=== PATIENT | male | born 1975 | race Caucasian/White ===

== ENCOUNTER → 2023-12-18 17:15 | Outpatient (REF) | payer BC, SELFPAY | LOC: HWRAD 17:15 | PROVIDERS: ATTENDING PHYSICIAN Chiropractor | DX: M53.2X7 Spinal instabilities, lumbosacral region (principal); R10.2 Pelvic and perineal pain | CPT/HCPCS: 72110; 72170 ==

== ENCOUNTER 2024-06-15 19:24 | Emergency (ER) | payer SELFPAY ==
[2024-06-15 19:26] VITALS: BP 121/79
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
[2024-06-15 23:30] VITALS: BP 129/76
== END 2024-06-15 23:31 | disposition home or self-care (01) ==
LOC: EMR 19:24
PROVIDERS: EMERGENCY PHYSICIAN Emergency Medicine
DX: S00.81XA Abrasion of other part of head, initial encounter (principal); R22.0 Localized swelling, mass and lump, head; R42 Dizziness and giddiness; V53.5XXA Driver of pick-up truck or van injured in collision with car, pick-up truck or van in traffic accident, initial encounter; Y92.410 Unspecified street and highway as the place of occurrence of the external cause; Y99.0 Civilian activity done for income or pay; I10 Essential (primary) hypertension; R73.03 Prediabetes; F17.200 Nicotine dependence, unspecified, uncomplicated; I25.2 Old myocardial infarction; Z79.02 Long term (current) use of antithrombotics/antiplatelets; Z95.5 Presence of coronary angioplasty implant and graft
CPT/HCPCS: 99284; 70450; 72125

== ENCOUNTER 2025-04-15 21:17 | Emergency (ER) | payer BC, SELFPAY ==
[2025-04-15 21:17] VITALS: BMI 36.4
[2025-04-15 21:24] VITALS: BP 145/79
[2025-04-15 22:23] VITALS: BP 146/82
--- NOTE | 2025-04-15 22:30 | ED.GENMED ---
History of Present Illness
General
Chief Complaint: Fall
Source: patient and spouse
Exam Limitations: none
Time Seen by Provider: 04/15/25 22:01
Nursing documentation reviewed up to this point in time: agreed with
History of Present Illness
History of Present Illness:
49-year-old male with past medical history of hypertension, diabetes, CAD status post stent on Brilinta who presents to the emergency department for evaluation after a fall. Patient was up on a ladder he says about 6 feet high. He says that the
ladder slipped out and he fell down landing on his feet and then fell backwards. He says he did not hit his head or lose consciousness. He says he injured his legs�most notably complains of pain in his right ankle. He also has some soreness in
the lower legs bilaterally. He sustained an abrasion to the anterior left mason. He says that initially he tried to walk off the fall but he was having trouble bearing weight on his right ankle and was having increasing pain which prompted ER trip.
He denies any headache or neck pain. He denies any back pain. He denies any chest or abdominal pain. He denies any pain in his upper extremities.
Past History
Past History
ED Past Medical History: HTN and Other (Pre-Diabetic)
ED Past Surgical History: Cardiac (Stent) and Orthopedic
Social History
Tobacco: Smoker
Alcohol: Occasional
Personal:
Living: with family
Employment: Employed
Review of Systems
Review of Systems
All Other Systems: ROS reviewed and negative except as documented in HPI and ROS
Respiratory: Denies trouble breathing
Cardiac: Denies chest pain
ABD/GI: Denies abdominal pain or nausea
: Denies flank pain
Musculoskeletal: Reports joint pain (Right ankle pain); Denies neck pain or back pain
Neurological: Denies headache
Phy Exam
Physical Exam
Physical Exam:
General: Awake, alert, oriented x3; no acute distress
Head: Normocephalic, atraumatic
Eyes: Conjunctiva normal, pupils equal round and reactive to light bilaterally
Throat: Airway intact, handling secretions
Neck: Trachea midline, no tenderness in the cervical spine, full range of motion without pain
Back: No signs of trauma to the back or flank, no tenderness of the thoracic or lumbar spine and no spinal step-offs, no tenderness in the posterior ribs
Lungs: Clear to auscultation bilaterally, no wheezing, rales, rhonchi
Heart: Regular rate; no chest wall tenderness
Abd: Soft, non distended, nontender
Neuro: Cranial nerves grossly intact, speech fluid, motor and sensory intact in the extremities although patient has pain on distal strength testing of the right foot
Skin: Patient has linear abrasion to the left mason
Extremities: Patient has linear abrasion to left mason and mild tenderness around this area but no tenderness in the left hip, knee, ankle and full range of motion in these joints without pain; on exam of the right lower extremity has no tenderness
in the hip or knee but he does have severe tenderness of the ankle over the lateral and medial malleolus (maximally tender over the lateral malleolus); he has some tenderness of the midfoot as well on the right; palpable pulses in the lower
extremities bilaterally; upper extremities atraumatic and moving them freely without pain
Scores
Heart Failure Risk
Heart Failure Risk Score: Not Applicable
Heart Score for Chest Pain Patients
STEMI patient?: Not applicable
Withdrawal Assessment of Alcohol
Withdrawal Assessment Completed?: Not applicable
Course
Orders/Labs/Results
Orders:
Orders
04/15/25 21:33
CT Head W/o Iv Contrast Urgent
Comment:
Reason For Exam: injury, blood thinners
CR Ankle - Right Min 3 Views * Urgent
Comment:
Reason For Exam: injury
CR Leg Tibia/fibula Left 2 Vw Urgent
Comment:
Reason For Exam: injury
CR Leg Tibia/fibula Right 2 Vw Urgent
Comment:
Reason For Exam: injury
04/15/25 22:30
Ortho Boot Right- Treatment ONCE
Short or tall?: Short
Oxycodone/Acetaminophen [Percocet 5/325] 1 tablet PO NOW STA
04/15/25 22:34
CR Foot - Right Min 3 Views Urgent
Comment:
Reason For Exam: right foot pain
Vital Signs
Initial and Last Documented VS:
Initial Vital Signs
Temp Pulse Resp BP Pulse Ox
37.1 C 80 18 145/79 98
04/15/25 21:24 04/15/25 21:24 04/15/25 21:24 04/15/25 21:24 04/15/25 21:24
Last Documented Vital Signs
Temp Pulse Resp BP Pulse Ox
37.1 C 80 23 146/82 98
04/15/25 21:24 04/15/25 22:30 04/15/25 22:30 04/15/25 22:23 04/15/25 22:34
MDM/Problems Addressed
Differential Diagnosis Includes:
Right ankle pain: Ankle/foot fracture, sprain, contusion
MDM/Problems Addressed:
49-year-old male presents after a fall off of a ladder last as above. Mainly complaining of pain in the right ankle. He was sent for imaging out of triage including a CT head�did not any head strike and no signs of head trauma but he is on
Brilinta. Fortunately CT head was negative for any acute abnormalities. He was sent for x-rays of the lower legs bilaterally which showed no fracture. He was sent for an x-ray of the right ankle which showed no fracture. Will add x-ray of the
foot as he does have some tenderness in the midfoot as well. Will treat pain. Will place an Ortho boot. Reassess after the above.
X-ray of the foot reviewed by me shows no acute fracture. Ortho boot applied by me. He is still having severe pain with any attempt at weightbearing on the right ankle. Provided crutches and advised to stay nonweightbearing. Discussed with
orthopedist to facilitate close follow-up on an outpatient basis. Will prescribe pain control in the meantime we spoke about conservative measures (RICE) in addition. All questions answered.
Chronic conditions affecting care:
CAD on Brilinta increases risk of significant injury from fall
*Radiology
Radiology exam reviewed: preliminary read by ED provider and radiology read reviewed
*Pulse Oximetry
SaO2: 98
Patient hypoxic: no (98%)
*Critical Care Note
Total Time (30-74mins, 75-104mins- exclusive of procedures): Not Applicable
Data Reviewed
Source: patient and spouse
Patient Management
Discussion with other providers: [employer] (Discussed with orthopedist)
ED Attending Note
-
Portions of this chart may have been created with voice recognition software.� Occasional wrong word or��sound alike� substitutions may have occurred due to the inherent limitations of voice recognition software.
Discharge Plan
Departure
Patient with high blood pressure during this ER visit?: No
Discharge Problem:
Severe sprain of right ankle, Abrasion of left leg
Instructions: Ankle sprain - ED (DC), RICE Therapy
Prescriptions:
New
oxycodone 5 mg tablet
5 mg PO TID PRN (Reason: Pain) Qty: 14 0RF
No Action
(DME) OneTouch Verio test strips Strip
Qty: 100 0RF
Rx Instructions:
As Directed
(DME) lancets [OneTouch Delica Lancets] 30 gauge Misc
Qty: 100 0RF
Rx Instructions:
As Directed
Jardiance 10 mg Tablet
10 mg PO DAILY Qty: 30 0RF
metformin 1,000 mg Tablet
1,000 mg PO BID@0800,1700 Qty: 60 0RF
losartan 50 mg Tablet
50 mg PO HS Qty: 30 11RF
atorvastatin 80 mg Tablet
80 mg PO QPM Qty: 30 11RF
aspirin 81 mg Tablet,Chewable
81 mg PO DAILY Qty: 30 0RF
Brilinta 90 mg Tablet
90 mg PO BID Qty: 60 11RF
carvedilol [Coreg] 6.25 mg tablet
6.25 mg PO BID Qty: 60 11RF
Referrals:
Saroj Purcell MD [[facility], Orthopedics] - Call in 1-3 days for appt
Activity Restrictions/Additional Instructions:
Thank you for visiting the Emergency Department at [facility].
1. Please schedule a follow up appointment as directed. Call first thing tomorrow morning to make an appointment.
2. If indicated, please take your medications as instructed and indicated on discharge paperwork.
3. If any of your symptoms do not improve, or persist, or become more severe within 6-12 hours, please return to the emergency department for further care.
4. Please return to the emergency department if you develop a headache, neck pain/stiffness, fever greater than 100.4F, chest pain, shortness of breath, persistent nausea, vomiting, slurred speech, difficulty walking, numbness/tingling, weakness,
signs of infection or any other symptoms that are worrisome to you.
Please call [phone] if you have any questions.
Interventions
Interventions:
*Risk Screen - Suicide Last Done: 04/15/25 21:27
*General Assessment Last Done: 04/15/25 21:27
*Neglect/Abuse Screening Last Done: 04/15/25 21:27
*ED- Fall Risk Assessment Last Done: 04/15/25 23:01
*ED COVID-19 Vaccine History Last Done: 04/15/25 21:27
*ED Influenza Vaccine History Last Done: 04/15/25 21:27
ED-Musculoskeletal Assessment Last Done: 04/15/25 21:45
ED- Neurological Assessment Last Done: 04/15/25 21:45
ED-Skin Assessment Last Done: 04/15/25 21:45
Discharge Date and Time
Print Language: [email or web address]
[2025-04-15] MEDS: PERCOCET 5/325 1 TABLET PO (22:49)
== END 2025-04-16 00:15 | disposition home or self-care (01) ==
LOC: EMR 21:17
PROVIDERS: EMERGENCY PHYSICIAN Emergency Medicine; FAMILY PHYSICIAN Registered Nurse
DX: S93.401A Sprain of unspecified ligament of right ankle, initial encounter (principal); S80.812A Abrasion, left lower leg, initial encounter; W01.0XXA Fall on same level from slipping, tripping and stumbling without subsequent striking against object, initial encounter; I10 Essential (primary) hypertension; E11.9 Type 2 diabetes mellitus without complications; I25.10 Atherosclerotic heart disease of native coronary artery without angina pectoris; F17.200 Nicotine dependence, unspecified, uncomplicated; Z79.02 Long term (current) use of antithrombotics/antiplatelets; Z95.5 Presence of coronary angioplasty implant and graft
CPT/HCPCS: 99284; 70450; 73590; 73610; 73630